=== PATIENT | male | born 1965 | race Two or more races ===

== ENCOUNTER 2016-10-24 12:25 | Emergency (ER) | payer MEDICARE, OTHER ==
[~2016-10-24] VITALS: Ht 170.2 cm; Wt 72.6 kg
[~2016-10-24 12:25] MED LIST: CITA-77 PO; ENAL20TA70 PO; HYDR25TA4 PO; INSLANTI; METF-370 PO; MORP30TA PO; SITA100T7; ZOLP5TAB5 PO
[2016-10-24 12:55] LABS: Basophils # (auto) 0 uL; Basophils % (auto) 0.2 % (0.0-2.0); CONDITION Y; Eosinophils # (auto) 0.1 uL; Eosinophils % (auto) 1.2 % (0.0-7.0); Hematocrit 46.5 % (41.0-53.0); Hemoglobin 16.1 g/dL (13.5-17.5); Lymphocytes # (auto) 2.2 uL; Lymphocytes % (auto) 23.4 % (10.0-50.0); Mean Corpuscular Hemoglobin 29.7 pg (28.0-32.0); Mean Corpuscular Hgb Conc. 34.7 g/dL (32.0-36.0); Mean Corpuscular Volume 85.8 fL (80.0-100.0); Mean Platelet Volume 7.2 fL (7.4-10.4); Monocytes # (auto) 0.5 uL; Monocytes % (auto) 5.6 % (0.0-12.0); Neutrophils # (auto) 6.5 uL; Neutrophils % (auto) 69.6 % (37.0-80.0); Platelet Count (auto) 353 10^3/uL (140-450); Red Cell Distribution Width 12.5 % (11.6-16.0); White Blood Cell 9.3 10^3/uL (4.4-10.8)
[2016-10-24 13:20] LABS: Albumin 4.2 g/dL (3.4-5.0); Anion Gap 9 (5-15); Aspartate Aminotransferase 11 U/L (15-37); BUN/Creatinine Ratio 13.8; Blood Urea Nitrogen 11 mg/dL (7-18); Calcium 8.8 mg/dL (8.5-10.1); Carbon Dioxide 26 mmol/L (21-32); Chloride 103 mmol/L (98-107); GFR African American 132 mL/min; GFR Non-African American 109 mL/min; Glucose 294 mg/dL (74-106); Potassium 4.3 mmol/L (3.5-5.1); Sodium 138 mmol/L (136-145)
[2016-10-24 13:24] LABS: Alkaline Phosphatase 106 U/L (45-117); Bilirubin, Total 0.4 mg/dL (0.2-1.0); Total Protein 7.8 g/dL (6.4-8.2)
[2016-10-24] MEDS ORDERED: HYDROmorphone HCL 2 MG/ML VL IV ONE (22:15)
[2016-10-24] MEDS ORDERED: ONDANSETRON HCL 4 MG/2 ML VIAL IV ONE (22:15)
[2016-10-24] MEDS ORDERED: SODIUM CHLORIDE 0.9% 1,000 ML IV ONE (22:15)
[2016-10-24] MEDS ORDERED: HYDROcodone-ACET 10/325MG TAB PO ONE (23:15)
[2016-10-24] MEDS ORDERED: InsuLIN REG 1unit/0.01ml Soln (100units/ml) IV ONE (23:45)
[2016-10-25 02:08] VITALS: BP 143/90
== END 2016-10-25 02:21 | disposition home or self-care (01) ==
LOC: ER 12:25
DX: S43.401A Unspecified sprain of right shoulder joint, initial encounter (principal); E11.65 Type 2 diabetes mellitus with hyperglycemia; R55 Syncope and collapse; I25.10 Atherosclerotic heart disease of native coronary artery without angina pectoris; E78.5 Hyperlipidemia, unspecified; I10 Essential (primary) hypertension; G89.29 Other chronic pain; M54.9 Dorsalgia, unspecified; Z79.4 Long term (current) use of insulin; Z79.899 Other long term (current) drug therapy; Z87.891 Personal history of nicotine dependence
CPT/HCPCS: 36415; 70450; 73030; 80053; 82962; 84484; 85025; 93005; 96361; 96374; 96375; 99285; J1170; J2405; J7030

== ENCOUNTER 2019-04-10 09:47 | Emergency (ER) | payer BC, MEDICARE, OTHER ==
[~2019-04-10] VITALS: Ht 170.2 cm; Wt 72.6 kg
[~2019-04-10 09:47] MED LIST changes: +ENAL20TA PO; -ENAL20TA70 PO
[2019-04-10 10:17] VITALS: BP 141/107
== END 2019-04-10 10:48 | disposition home or self-care (01) ==
LOC: ER 09:47
DX: J20.9 Acute bronchitis, unspecified (principal); E11.9 Type 2 diabetes mellitus without complications; E78.5 Hyperlipidemia, unspecified; I10 Essential (primary) hypertension; I25.10 Atherosclerotic heart disease of native coronary artery without angina pectoris; Z87.891 Personal history of nicotine dependence
CPT/HCPCS: 82962

== ENCOUNTER 2020-08-12 07:47 | Emergency (ER) | payer BC ==
[~2020-08-12] VITALS: Ht 170.2 cm; Wt 72.6 kg
[~2020-08-12 07:47] MED LIST changes: -ENAL20TA PO; +ENAL20TA8 PO
[2020-08-12] MEDS ORDERED: HYDROcodone-ACET 5/325MG TAB PO ONE (10:00)
[2020-08-12] MEDS ORDERED: KETOROLAC TROMETH 60MG/2ML VIAL IM ONE (10:15)
[2020-08-12 10:30] VITALS: BP 142/86
== END 2020-08-12 10:32 | disposition home or self-care (01) ==
LOC: ER 07:47
DX: S82.002A Unspecified fracture of left patella, initial encounter for closed fracture (principal); E11.9 Type 2 diabetes mellitus without complications; E78.5 Hyperlipidemia, unspecified; I10 Essential (primary) hypertension; Z87.891 Personal history of nicotine dependence; W01.0XXA Fall on same level from slipping, tripping and stumbling without subsequent striking against object, initial encounter; Y93.89 Activity, other specified; Y92.89 Other specified places as the place of occurrence of the external cause; Y99.8 Other external cause status
CPT/HCPCS: 29505; 73562; 96372; 99283; J1885

== ENCOUNTER 2023-06-10 17:27 | Inpatient (IN) | payer BC ==
[~2023-06-10] VITALS: Ht 172.7 cm; Wt 75.4 kg
[~2023-06-10 17:27] MED LIST changes: +ENAL1TAB48 PO; -ENAL20TA8 PO; +TRAM-297 PO
[2023-06-10 17:55] VITALS: PULSE 100; RESP 13; O2SAT 92
[2023-06-10 18:14] LABS: Basophils # (auto) 0 10 ^3/uL (0-0.2); Basophils % (auto) 0.3 % (0.0-2.0); Eosinophils # (auto) 0.2 10 ^3/uL (0-0.8); Eosinophils % (auto) 1.2 % (0.0-7.0); Hematocrit 44.6 % (41.0-53.0); Lymphocytes # (auto) 2.8 10 ^3/uL (0.4-5.4); Lymphocytes % (auto) 18.6 % (10.0-50.0); Mean Corpuscular Hemoglobin 28.3 pg (28.0-32.0); Mean Corpuscular Hgb Conc. 33.7 g/dL (32.0-36.0); Mean Corpuscular Volume 83.8 fL (80.0-100.0); Monocytes % (auto) 7.1 % (0.0-12.0); Neutrophils # (auto) 10.8 10 ^3/uL (1.6-8.6); Neutrophils % (auto) 72.8 % (37.0-80.0); Nucleated Red Blood Cells % 0.1 %; Red Blood Cells 5.32 10^6/uL (4.5-5.90); Red Cell Distribution Width 13.8 % (11.8-14.3); White Blood Cell 14.8 10^3/uL (4.4-10.8)
[2023-06-10] MEDS: SODIUM CHLORIDE 0.9% 1,000 ML IV ONE (18:18)
[2023-06-10 18:29] LABS: Alanine Aminotransferase 23 U/L (7-40); Albumin 4.2 g/dL (3.2-4.8); Alkaline Phosphatase 81 U/L (46-116); Anion Gap 7 (5-15); Aspartate Aminotransferase 13 U/L (13-40); BUN/Creatinine Ratio 20.9 (10.0-20.0); Blood Urea Nitrogen 18 mg/dL (9-23); Carbon Dioxide 28 mmol/L (20-30); Chloride 101 mmol/L (98-107); Glucose 79 mg/dL (74-106); Magnesium 1.8 mg/dL (1.6-2.6); Potassium 2.9 mmol/L (3.5-5.1); Sodium 136 mmol/L (136-145)
[2023-06-10 18:30] LABS: Bilirubin, Total 0.4 mg/dL (0.2-1.0); Total Protein 6.6 g/dL (5.7-8.2)
[2023-06-10 18:34] LABS: INR 0.98 (0.9-1.15); Partial Thromboplastin Time 26.5 SEC (24.5-34.5); Prothrombin Time 10.3 sec (9.3-11.8)
[2023-06-10 19:35] VITALS: PULSE 92; RESP 13; O2SAT 97
[2023-06-10] MEDS: POTASSIUM CHL 20 Meq TABLET PO ONE (20:15)
[2023-06-10] MEDS: IOHEXOL 350 MG/ML 100ML IJ ONE (20:36)
[2023-06-10] MEDS ORDERED: MORPHINE SULFATE INJ 2 MG/ml SYRG IV PRN (21:30)
[2023-06-10] MEDS ORDERED: HYDROcodone-ACET 5/325MG TAB PO PRN (21:30)
[2023-06-10] MEDS ORDERED: ACETAMINOPHEN 325 MG TAB PO PRN (21:30)
[2023-06-10] MEDS ORDERED: ONDANSETRON HCL 4 MG/2 ML VIAL IV PRN (21:30)
[2023-06-10] MEDS ORDERED: NITROGLYCERIN 0.4 MG SL TAB SL PRN (21:30)
[2023-06-10 21:57] LABS: Prothrombin Time 10.5 sec (9.3-11.8)
[2023-06-10] MEDS: InsuLIN REG 1unit/0.01ml Soln (100units/ml) SC SCH (22:00)
[2023-06-10] MEDS ORDERED: DEXTROSE (50%) 50ML SYRG IV PRN (22:00)
[2023-06-10] MEDS: ATORVASTATIN 20 MG TAB PO SCH (22:34)
[2023-06-10] MEDS: ACCU-CHEK COMFORT CURVE STRIP VI SCH (23:49)
[2023-06-10 23:51] LABS: Urine Bacteria NONE SEEN /hpf (None Seen); Urine Blood Negative /uL (Negative); Urine Clarity Clear (Clear); Urine Color Colorless (Yellow); Urine Protein, UAD Negative (Negative); Urine Specific Gravity 1.024 (1.001-1.035); Urine Urobilinogen Normal (Negative); Urine WBC 5 /hpf (0 - 3)
[2023-06-11 00:02] LABS: Amphetamine Screen, Urine Neg (NEGATIVE); Barbiturate Scree,Urine Neg (NEGATIVE); Benzodiazephine Screen, Urine Neg (NEGATIVE); Cocaine Screen, Urine Neg (NEGATIVE)
[2023-06-11 00:03] LABS: Cannabinoid Screen, Urine Neg (NEGATIVE); Opiate Scree,Urine Neg (NEGATIVE); Phencyclidine Screen, Urine Neg (NEGATIVE)
[2023-06-11 04:35] LABS: Basophils # (auto) 0 10 ^3/uL (0-0.2); Basophils % (auto) 0.4 % (0.0-2.0); Eosinophils # (auto) 0.2 10 ^3/uL (0-0.8); Eosinophils % (auto) 1.8 % (0.0-7.0); Hematocrit 42.3 % (41.0-53.0); Hemoglobin 14.9 g/dL (13.5-17.5); Lymphocytes # (auto) 2.6 10 ^3/uL (0.4-5.4); Lymphocytes % (auto) 29.4 % (10.0-50.0); Mean Corpuscular Hemoglobin 29.5 pg (28.0-32.0); Mean Corpuscular Hgb Conc. 35.2 g/dL (32.0-36.0); Monocytes # (auto) 0.6 10 ^3/uL (0-1.3); Monocytes % (auto) 7.1 % (0.0-12.0); Neutrophils # (auto) 5.3 10 ^3/uL (1.6-8.6); Neutrophils % (auto) 61.3 % (37.0-80.0); Nucleated Red Blood Cells % 0.2 %; Red Blood Cells 5.03 10^6/uL (4.5-5.90); Red Cell Distribution Width 13.5 % (11.8-14.3); White Blood Cell 8.7 10^3/uL (4.4-10.8)
[2023-06-11 04:46] LABS: Chloride 104 mmol/L (98-107); Potassium 3.4 mmol/L (3.5-5.1); Sodium 138 mmol/L (136-145)
[2023-06-11 04:47] LABS: Anion Gap 5 (5-15); Calcium 9.4 mg/dL (8.5-10.1); Carbon Dioxide 29 mmol/L (20-30)
[2023-06-11 04:52] LABS: BUN/Creatinine Ratio 14.7 (10.0-20.0); Blood Urea Nitrogen 11 mg/dL (9-23); Triglycerides 245 mg/dL (< 150)
[2023-06-11 04:53] LABS: LDL Cholesterol 114 mg/dL (< 100)
[2023-06-11 04:54] LABS: Cholesterol 161 mg/dL (< 200); HDL Cholesterol 28 mg/dL (40-59)
[2023-06-11 04:56] LABS: Glucose 210 mg/dL (74-106)
[2023-06-11] MEDS: cefTRIAXone 1GM/50ML D5W 50 ML IV SCH (05:54)
[2023-06-11] MEDS: POTASSIUM CHL 20MEQ/100ML 100 ML IV ONE (06:01)
[2023-06-11 07:40] VITALS: PULSE 97; RESP 18; O2SAT 98
[2023-06-11] MEDS: PANTOPRAZOLE 40 MG/10 ML VIAL INJ IV SCH (10:00)
[2023-06-11] MEDS: ASPirin 81 mg TAB PO SCH (10:00)
[2023-06-11] MEDS: ENOXAPARIN SOD 40 MG/0.4 ML SYRINGE SC SCH (10:00)
[2023-06-11] MEDS ORDERED: ZOLPIDEM TARTRATE 5 MG TAB PO PRN (13:30)
[2023-06-11] MEDS: cloNIDine HCL 0.1 MG TAB PO ONE (15:33)
[2023-06-11 16:12] VITALS: PULSE 101; RESP 18; O2SAT 98
[2023-06-11] MEDS ORDERED: cloNIDine HCL 0.1 MG TAB PO PRN (17:00)
[2023-06-11 17:03] VITALS: BP 188/101; PULSE 102; RESP 20; TEMP 99.3; O2SAT 95
[2023-06-11 17:08] VITALS: BP 128/78; PULSE 102; RESP 20; TEMP 97.8; O2SAT 97
[2023-06-11] MEDS ORDERED: INSREG3 (17:11)
[2023-06-11] MEDS ORDERED: INSU1INJ19 SC (17:11)
[2023-06-11] MEDS ORDERED: ATOR10TA52 PO (17:11)
[2023-06-11] MEDS ORDERED: ATEN-60 PO (17:13)
[2023-06-11 20:00] VITALS: PULSE 94
[2023-06-11] MEDS: cloNIDine HCL 0.1 MG TAB PO SCH (21:38)
[2023-06-11] MEDS: CITALOPRAM HYDROBR 20 MG TAB PO SCH (21:38)
[2023-06-11 21:58] VITALS: BP 130/72; PULSE 95; RESP 21; TEMP 98.2; O2SAT 88
[2023-06-12] VITALS (7 sets, daily range): BP systolic 121–165; BP diastolic 74–100; PULSE 75–85; RESP 16–96; TEMP 97.4–98.7; O2SAT 96–100
[2023-06-12 06:08] LABS: Chloride 106 mmol/L (98-107); Potassium 3.8 mmol/L (3.5-5.1); Sodium 138 mmol/L (136-145)
[2023-06-12 06:09] LABS: Anion Gap 5 (5-15); Carbon Dioxide 27 mmol/L (20-30)
[2023-06-12 06:14] LABS: BUN/Creatinine Ratio 8.5 (10.0-20.0); Blood Urea Nitrogen 6 mg/dL (9-23); Glucose 183 mg/dL (74-106)
[2023-06-12] MEDS: ADENOSINE 63 MG in GIVE UN-DILUTED 0 ML IV ONE (09:40)
[2023-06-12] MEDS: ENALAPRIL MALEATE 10 MG TAB PO SCH (11:20)
[2023-06-12] MEDS: INSULIN LANTUS (GLARGINE) 1 /0.01ml (100units/ml) SC SCH (11:42)
[2023-06-12] MEDS ORDERED: PANT40TA57 PO (17:02)
[2023-06-12] MEDS ORDERED: CIPR500T4 PO (17:05)
[2023-06-12] MEDS: INFLUENZA QUAD 2023-2024 0.5 ML SYRG IM ONE (19:02)
== END 2023-06-12 19:00 | disposition home or self-care (01) | DRG 641 ==
LOC: EDBD 17:27 → ER 17:27 → TELE 21:26 → TELE-WESTW 06-11 16:12
PROVIDERS: ADMIT Nurse Practitioner Family; ATTEND Nurse Practitioner Family
DX: E87.6 Hypokalemia (principal); N39.0 Urinary tract infection, site not specified; K21.9 Gastro-esophageal reflux disease without esophagitis; I10 Essential (primary) hypertension; I16.0 Hypertensive urgency; I25.9 Chronic ischemic heart disease, unspecified; E11.65 Type 2 diabetes mellitus with hyperglycemia; E78.5 Hyperlipidemia, unspecified; I25.10 Atherosclerotic heart disease of native coronary artery without angina pectoris; E11.40 Type 2 diabetes mellitus with diabetic neuropathy, unspecified; Z79.84 Long term (current) use of oral hypoglycemic drugs; Z87.891 Personal history of nicotine dependence; Z82.49 Family history of ischemic heart disease and other diseases of the circulatory system
CPT/HCPCS: 36415; 70450; 70496; 70551; 71045; 78452; 80048; 80053; 80061; 80307; 81001; 82607; 82962; 83036; 83735; 83880; 84132; 84443; 84484; 85025; 85610; 85730; 87086; 87088; 90686; 93005; 93017; 93306; 97163; C9113; G0378; J0153; J1815; J3480

== ENCOUNTER 2023-07-29 11:16 | Inpatient (IN) | payer BC ==
[~2023-07-29] VITALS: Ht 170.2 cm; Wt 71.3 kg
[~2023-07-29 11:16] MED LIST changes: +ATEN-60 PO; +ATOR10TA52 PO; +CIPR500T4 PO; -INSLANTI; +INSREG3; +INSU1INJ19 SC; +PANT40TA57 PO; -TRAM-297 PO; -ZOLP5TAB5 PO
[2023-07-29] MEDS ORDERED: MORPHINE SULFATE INJ 2 MG/ml SYRG IM ONE (11:45)
[2023-07-29 13:00] LABS: Basophils # (auto) 0 10 ^3/uL (0-0.2); Basophils % (auto) 0.6 % (0.0-2.0); Eosinophils # (auto) 0.1 10 ^3/uL (0-0.8); Eosinophils % (auto) 2.2 % (0.0-7.0); Hematocrit 42.5 % (41.0-53.0); Hemoglobin 14.3 g/dL (13.5-17.5); Lymphocytes # (auto) 1.5 10 ^3/uL (0.4-5.4); Lymphocytes % (auto) 22.8 % (10.0-50.0); Mean Corpuscular Hemoglobin 28.8 pg (28.0-32.0); Mean Corpuscular Hgb Conc. 33.7 g/dL (32.0-36.0); Mean Corpuscular Volume 85.5 fL (80.0-100.0); Monocytes # (auto) 0.6 10 ^3/uL (0-1.3); Neutrophils # (auto) 4.3 10 ^3/uL (1.6-8.6); Neutrophils % (auto) 65.4 % (37.0-80.0); Red Blood Cells 4.97 10^6/uL (4.5-5.90); White Blood Cell 6.6 10^3/uL (4.4-10.8)
[2023-07-29 13:25] LABS: INR 1.09 (0.9-1.15); Partial Thromboplastin Time 28.3 SEC (24.5-34.5); Prothrombin Time 11.4 sec (9.3-11.8)
[2023-07-29 13:26] LABS: Alanine Aminotransferase 30 U/L (7-40); Albumin 4.2 g/dL (3.2-4.8); Alkaline Phosphatase 116 U/L (46-116); Anion Gap 7 (5-15); Aspartate Aminotransferase 19 U/L (13-40); BUN/Creatinine Ratio 15.6 (10.0-20.0); Blood Urea Nitrogen 20 mg/dL (9-23); Calcium 9.4 mg/dL (8.5-10.1); Carbon Dioxide 28 mmol/L (20-30); Chloride 100 mmol/L (98-107); Glucose 268 mg/dL (74-106); Potassium 4.2 mmol/L (3.5-5.1); Sodium 135 mmol/L (136-145)
[2023-07-29 13:27] LABS: Total Protein 6.9 g/dL (5.7-8.2)
[2023-07-29] MEDS: ASPirin 325 MG TAB PO ONE (14:02)
[2023-07-29] MEDS: ONDANSETRON ODT 4 MG TAB PO ONE (14:31)
[2023-07-29] MEDS ORDERED: MORPHINE SULFATE INJ 2 MG/ml SYRG IV PRN (15:15)
[2023-07-29] MEDS ORDERED: ONDANSETRON HCL 4 MG/2 ML VIAL IV PRN (15:15)
[2023-07-29] MEDS ORDERED: ACETAMINOPHEN 650 mg PER 20.3 mL UD PO PRN (15:15)
[2023-07-29] MEDS ORDERED: NITROGLYCERIN 0.4 MG SL TAB SL PRN (15:15)
[2023-07-29] MEDS ORDERED: DEXTROSE (50%) 50ML SYRG IV PRN (15:15)
[2023-07-29 16:01] LABS: INR 1.08 (0.9-1.15); Partial Thromboplastin Time 27.7 SEC (24.5-34.5); Prothrombin Time 11.3 sec (9.3-11.8)
[2023-07-29] MEDS: ACCU-CHEK COMFORT CURVE STRIP VI SCH (18:00)
[2023-07-29] MEDS: ENOXAPARIN SOD 80 MG/0.8ML SYRINGE SC ONE (18:25)
[2023-07-29] MEDS: MORPHINE SULFATE INJ 2 MG/ml SYRG IV ONE (18:27)
[2023-07-29] MEDS: FUROSEMIDE 20 MG/2 ML VIAL IV ONE (18:27)
[2023-07-29] MEDS: InsuLIN REG 1unit/0.01ml Soln (100units/ml) SC SCH (18:35)
[2023-07-29] MEDS: HEPARIN SODIUM (PORCINE) 5000 UNITS/ML 1ML VIAL IV ONE (18:53)
[2023-07-29] MEDS: HEPARIN DRIP/D5W 100UNITS/ML 250 ML IV SCH (18:55)
[2023-07-29] MEDS ORDERED: cloNIDine HCL 0.1 MG TAB PO PRN (19:00)
[2023-07-29 19:35] VITALS: PULSE 100; RESP 17; O2SAT 95
[2023-07-29] MEDS: MORPHINE SULFATE INJ 2 MG/ml SYRG IV PRN (19:56)
[2023-07-29 20:16] VITALS: PULSE 100; RESP 17; O2SAT 95
[2023-07-29] MEDS ORDERED: CARVEDILOL 3.125 MG TAB PO SCH (22:00)
[2023-07-29] MEDS: ATORVASTATIN 20 MG TAB PO SCH (22:06)
[2023-07-29] MEDS: NTG 0.1MG/HR TOPICAL PATCH TD ONE (22:22)
[2023-07-30] VITALS (13 sets, daily range): BP systolic 108–155; BP diastolic 73–108; PULSE 77–110; RESP 15–19; TEMP 97.2–97.5; O2SAT 94–98
[2023-07-30] MEDS ORDERED: HYDR25TA5 PO (00:56)
[2023-07-30] MEDS ORDERED: SERT-289 PO (00:56)
[2023-07-30 01:08] LABS: INR 1.17 (0.9-1.15); Partial Thromboplastin Time 52.7 SEC (24.5-34.5); Prothrombin Time 12.2 sec (9.3-11.8)
[2023-07-30 08:01] LABS: INR 1.16 (0.9-1.15); Partial Thromboplastin Time 50.1 SEC (24.5-34.5); Prothrombin Time 12.1 sec (9.3-11.8)
[2023-07-30] MEDS: METOPROLOL TARTRATE 50 MG TAB PO SCH (09:52)
[2023-07-30] MEDS: ASPirin-EC 81 mg tab PO SCH (09:52)
[2023-07-30] MEDS: LISINOPRIL 5 MG TAB PO SCH (09:53)
[2023-07-30 12:41] LABS: INR 1.14 (0.9-1.15); Partial Thromboplastin Time 53.6 SEC (24.5-34.5); Prothrombin Time 11.9 sec (9.3-11.8)
[2023-07-30] MEDS: LIDOCAINE 2%HCL (LOCAL ANESTH.) INJ 20ML MDV ONE (18:36)
[2023-07-30] MEDS: IOHEXOL 350 MG/ML 100ML IJ ONE (18:36)
[2023-07-30] MEDS: fentaNYL CITRATE 100 MCG/2 ML VL ONE (19:17)
[2023-07-30] MEDS: VERAPAMIL 2.5MG/ML INJ 2ML VIAL IV ONE (19:17)
[2023-07-30] MEDS: HEPARIN SODIUM (PORCINE) 5000 UNITS/ML 1ML VIAL ONE (19:17)
[2023-07-30] MEDS: ANGIOMAX 250 MG VIAL IV ONE (19:17)
[2023-07-30] MEDS: MIDAZOLAM HCL 2MG/2ML 2ml VIAL (1mg/ml) ONE (19:18)
[2023-07-30] MEDS: SODIUM CHL 0.9% 50 ML ONE (19:18)
[2023-07-30] MEDS: IODIXANOL 320MG/ML 100ML BTL IV ONE ×2 (20:04→20:06)
[2023-07-30] MEDS: ATROPINE SULF 1 MG/10ml SYR ONE (20:06)
[2023-07-30] MEDS: CLOPIDOGREL BISULFATE 75 MG TAB ONE ×3 (20:11→20:16)
[2023-07-31] VITALS (7 sets, daily range): BP systolic 113–140; BP diastolic 78–87; PULSE 74–104; RESP 17–19; TEMP 97.7–98; O2SAT 95–99
[2023-07-31 07:11] LABS: Basophils # (auto) 0.1 10 ^3/uL (0-0.2); Basophils % (auto) 0.7 % (0.0-2.0); Eosinophils # (auto) 0.2 10 ^3/uL (0-0.8); Eosinophils % (auto) 2.8 % (0.0-7.0); Hemoglobin 13.7 g/dL (13.5-17.5); Lymphocytes # (auto) 1.5 10 ^3/uL (0.4-5.4); Lymphocytes % (auto) 19.8 % (10.0-50.0); Mean Corpuscular Hgb Conc. 33.4 g/dL (32.0-36.0); Mean Corpuscular Volume 86.7 fL (80.0-100.0); Monocytes # (auto) 0.8 10 ^3/uL (0-1.3); Monocytes % (auto) 10.7 % (0.0-12.0); Neutrophils # (auto) 4.9 10 ^3/uL (1.6-8.6); Nucleated Red Blood Cells % 0.1 %; Red Blood Cells 4.73 10^6/uL (4.5-5.90); Red Cell Distribution Width 13.9 % (11.8-14.3); White Blood Cell 7.4 10^3/uL (4.4-10.8)
[2023-07-31 08:23] LABS: INR 1.14 (0.9-1.15); Partial Thromboplastin Time 33.6 SEC (24.5-34.5); Prothrombin Time 11.9 sec (9.3-11.8)
[2023-07-31 09:03] LABS: Hepatitis B Surface Antigen Negative (Negative)
[2023-07-31 09:25] LABS: Hepatitis C Antibody Negative (Negative)
[2023-07-31] MEDS: CLOPIDOGREL BISULFATE 75 MG TAB PO SCH (09:27)
[2023-07-31] MEDS: SERTRALINE HCL 50 MG TAB PO SCH (11:26)
[2023-07-31] MEDS ORDERED: INSREG3 SC (13:14)
[2023-07-31] MEDS ORDERED: ERGO1CAP12 PO (13:14)
[2023-07-31] MEDS ORDERED: ALEN70TA74 PO (13:14)
[2023-07-31] MEDS ORDERED: ATOR20TA50 PO (16:46)
[2023-07-31] MEDS ORDERED: CLOP75TA70 PO (16:46)
[2023-07-31] MEDS ORDERED: ASPI-543 PO (16:46)
== END 2023-07-31 18:19 | disposition home or self-care (01) | DRG 321 ==
LOC: ER 11:16 → TELE 15:11 → TELE-WESTW 15:11
PROVIDERS: ADMIT Hospitalist; ATTEND Hospitalist
PROC: 4A023N7 Measurement of Cardiac Sampling and Pressure, Left Heart, Percutaneous Approach (ICD-10-PCS; principal; 2023-07-30)
PROC: 02723FZ Dilation of Coronary Artery, Three Arteries with Three Intraluminal Devices, Percutaneous Approach (ICD-10-PCS; 2023-07-30)
PROC: B211YZZ Fluoroscopy of Multiple Coronary Arteries using Other Contrast (ICD-10-PCS; 2023-07-30)
PROC: B215YZZ Fluoroscopy of Left Heart using Other Contrast (ICD-10-PCS; 2023-07-30)
DX: I21.4 Non-ST elevation (NSTEMI) myocardial infarction (principal); I50.31 Acute diastolic (congestive) heart failure; I13.0 Hypertensive heart and chronic kidney disease with heart failure and stage 1 through stage 4 chronic kidney disease, or unspecified chronic kidney disease; J98.11 Atelectasis; I25.10 Atherosclerotic heart disease of native coronary artery without angina pectoris; E78.5 Hyperlipidemia, unspecified; N18.30 Chronic kidney disease, stage 3 unspecified; E11.65 Type 2 diabetes mellitus with hyperglycemia; I25.5 Ischemic cardiomyopathy; K59.00 Constipation, unspecified; E11.22 Type 2 diabetes mellitus with diabetic chronic kidney disease; Z82.49 Family history of ischemic heart disease and other diseases of the circulatory system; Z87.891 Personal history of nicotine dependence; Z79.4 Long term (current) use of insulin
CPT/HCPCS: 36415; 71045; 74176; 80053; 82962; 83605; 83880; 84484; 85025; 85379; 85610; 85730; 86803; 87040; 87340; 92941; 93005; 93458; 96365; 96375; 99152; C1874; G0378; J1815; J2250; Q9967